=== PATIENT | male | born 1960 | race Caucasian/White ===

== ENCOUNTER → 2019-07-06 10:23 | Outpatient (BNVA) | payer OTHER, SELFPAY | PROVIDERS: Family Provider Family Medicine; Referring Provider Registered Nurse; Visit Provider Orthopaedic Surgery | DX: M25.511 Pain in right shoulder (principal); M13.811 Other specified arthritis, right shoulder | CPT/HCPCS: 73030 ==

== ENCOUNTER 2019-07-17 12:48 | Outpatient (CLI) | payer OTHER, SELFPAY ==
--- NOTE | 2019-07-17 13:20 | MR_ITS ---
WS: [id number] MRI RIGHT SHOULDER NONCONTRAST TECHNIQUE: Sagittal T2, coronal T1, T2 and proton density imaging. Axial gradient PDE imaging. CLINICAL INFORMATION: pain COMPARISON: None. FINDINGS: Moderate degenerative arthritis AC joint with mild edema. Mild downsloping of the acromion. Slight watts bacromial spurring. Supraspinatus appears intact. Normal infraspinatus. Normal teres minor. Subscapul errol tendon appears normal. Normal biceps tendon in the bicipital groove. Mild degenerative fraying of the glenoid labrum. No ac shorty appearing labral tears. Intra-articular biceps tendon appears intact. Normal bone marrow signal i n the humerus. Mild degenerative cystic change involving the greater tuberosity. MR/MR shoulder RT wo con* [id number] IMPRESSION: 1. Moderate degenerative arthritis at the AC joint with mild rotator cuff arth ropathy. Mild edema at the AC joint. Mild subacromial spurring. 2. Rotator cuff appears intact. No full-thickness rotator cuff tears. 3. Normal biceps tendon in the bicipital groove. 4. Chronic appearing degenerative fraying of the glenoid labrum. Labrum appear s grossly intact. 5. No other significant findings.
== END 2019-07-17 12:49 | disposition home or self-care (01) ==
LOC: RADWPI 12:51
PROVIDERS: Family Provider Family Medicine; PCP Family Medicine; Visit Provider Orthopaedic Surgery
DX: M19.011 Primary osteoarthritis, right shoulder (principal); R60.9 Edema, unspecified
CPT/HCPCS: 73221

== ENCOUNTER 2020-04-05 09:34 | Outpatient (CLI) | payer BC, SELFPAY ==
--- NOTE | 2020-04-05 09:51 | XR_ITS ---
WS: [id number] Exam: XR shoulder LT min 2V* [id number] Date/Time of Exam: 04/05/2020 10:01 AM Reason For Exam: PAIN IN LEFT SHOULDER No acute fracture or dislocation. DJD at the AC joint. Small calcification noted along the humeral he ad that might be seen with calcific tendinitis or bursitis. XR/XR shoulder LT min 2V* [id number] IMPRESSION: 1. No fracture or dislocation. 2. Small soft tissue calcification along the humeral head that might indicate c alcific bursitis or tendinitis. 3. AC joint DJD.
--- NOTE | 2020-04-05 09:51 | XR_ITS ---
WS: [id number] Exam: XR chest 2V* [id number] Date/Time of Exam: 04/05/2020 10:01 AM Reason For Exam: TOBACCO USE/SHORTNESS OF BREATH No priors. The lungs are clear and fully expanded. No pleural effusions. Normal cardiomediastinal structures and bony elements. XR/XR chest 2V* [id number] IMPRESSION: 1. No acute cardiopulmonary finding.
== END 2020-04-05 09:35 | disposition home or self-care (01) ==
LOC: RAD 09:35
PROVIDERS: PCP Family Medicine; Visit Provider Nurse Practitioner Family
DX: M25.512 Pain in left shoulder (principal); R06.02 Shortness of breath; Z80.1 Family history of malignant neoplasm of trachea, bronchus and lung; M19.012 Primary osteoarthritis, left shoulder
CPT/HCPCS: 71046; 73030

== ENCOUNTER 2020-11-12 13:11 | Outpatient (CLI) | payer BC, SELFPAY ==
--- NOTE | 2020-11-12 13:22 | XR_ITS ---
WS: [id number] Chest 2 views, 11/12/2020 Clinical Data: PLEURISY/PAIN IN R SHOULDER Comparison: PA and lateral chest, 04/05/2020. Findings: No nodules, masses or effusions are seen. The heart is normal. The pulmonary vascularity is not increased. No pneumonia or pneumothorax is seen. There is an azygos lobe of the lung. XR/XR chest 2V* [id number] Impression: Negative chest.
--- NOTE | 2020-11-12 13:22 | XR_ITS ---
WS: [id number] Right shoulder, 3 views, 11/12/2020 Clinical Data: PAIN BELOW R SHOUDLER BLADE/PLEURISY Comparison: None. Findings: No fractures or dislocations are seen. The AC joint is normal. The adjacent right clavicle, right sca pula and ribs are normal. There is a small calcification adjacent to the greater tuberosity which could indicate calcific bursi tis or tendinitis. XR/XR shoulder RT min 2V* [id number] Impression: Minimal calcific bursitis and/or tendinitis.
== END 2020-11-12 13:12 | disposition home or self-care (01) ==
PROVIDERS: PCP Family Medicine; Visit Provider Family Medicine
DX: M25.511 Pain in right shoulder (principal); R09.1 Pleurisy
CPT/HCPCS: 71046; 73030

== ENCOUNTER 2022-07-09 07:31 | Outpatient (CLI) | payer BC, SELFPAY ==
--- NOTE | 2022-07-09 07:48 | US_ITS ---
WS: [id number] Gallbladder and right upper quadrant ultrasound, 07/09/2022 Clinical Data: ABDOMINAL DISTENSION (GASEOUS) Comparison: None. Findings: The gallbladder shows no sludge or stone. The wall measures 0.3 cm with no pericholecystic fluid. The common bile duct is 0.5 cm and there are no intrahepatic ductal abnormalities. Liver shows no cysts, masses or dilated intrahepatic ducts. The portal vein shows normal flow The pancreas is partly obscured by overlying bowel gas but no cyst, pseudocyst, or evidence of pancre atitis is noted. Right kidney measures 11.3 cm and no cyst, masses or hydronephrosis can be seen. The aorta and inferior vena cava show no vascular abnormalities. US/US abdomen limited [id number] Impression: Negative gallbladder and right upper quadrant ultrasound.
== END 2022-07-09 07:32 | disposition home or self-care (01) ==
PROVIDERS: PCP Family Medicine; Visit Provider Family Medicine
DX: R14.0 Abdominal distension (gaseous) (principal)
CPT/HCPCS: 76705

== ENCOUNTER 2022-09-02 09:37 | Day surgery (SDC) | payer BC, SELFPAY ==
[2022-09-01 11:52] VITALS: BMI 32.8
[2022-09-02 10:03] VITALS: BP 128/84; PULSE 81; RESP 18; TEMP 36.6; O2SAT 95
--- NOTE | 2022-09-02 10:09 | ANES.PREANE2 ---
Pre-Anesthetic Assessment Height/Weight: Height 1.8 m Weight 106.594 kg Temp Pulse Resp BP Pulse Ox O2 Del Method 97.8 F 81 18 128/84 95 Room Air 09/02/22 10:03 09/02/22 10:03 09/02/22 10:03 09/02/22 10:03 09/02/22 10:03 09/02/22 10:03 Preop Diagnosis: Screening / GERD Operation Date: 09/02/22 10:30 Proposed Procedures p : 10423 EGD 30453 Colon K21.9,Z12.11(Not Applicable) - DO alexis Gaitan Colonoscopy(Not Applicable) - Aquilino Mcdowell DO Familial anesthetic complications: none Last intake: Intake Last Liquid Date 09/02/22 Last Liquid Time 22:00 Last Solid Date 09/01/22 Last Solid Time 20:00 Social Tobacco 1/2 ppd pack(s) per day 45+ pack years Exam alert, oriented x 3, clear to auscultation bilaterally and regular rate & rhythm Airway Submandibular: within normal limits Cervical ROM: within normal limits Mallampati: Class II Dentition: loose (right upper molar patient states he could pull it out.) Pulmonary Chronic Obstructive Pulmonary Disease and Shortness of Breath CV/HEM Coronary Artery Disease, Hypertension and Myocardial Infarction (2003, 2018, Stents x4) 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 Performs ADLS still able to work in the yard per patient. None reported Hepatic None reported GI Gastroesophageal Reflux Disease gastric ulcer Metabolic Diabetes Mellitus, Hyperlipidemia and Morbid Obesity [facility] None reported Neuropsych Transient Ischemic Attack (1999) Anesthetic Plan ASA status: 3 Anesthesia: MAC Medications/Allergies Home Medications Medication Instructions Recorded Confirmed Last Taken Type amlodipine 10 mg tablet 10 mg PO QPM 08/12/22 09/01/22 08/31/22 History aspirin 81 mg chewable tablet 1 tab PO DAILY 08/12/22 09/01/22 08/28/22 History glimepiride 2 mg tablet 2 mg PO DAILY 08/12/22 09/01/22 08/31/22 History lovastatin 20 mg tablet 20 mg PO BID 08/12/22 09/01/22 08/31/22 History metformin 850 mg tablet 850 mg PO BID 08/12/22 09/01/22 08/31/22 History metoprolol tartrate 50 mg tablet 50 mg PO DAILY 08/12/22 09/01/22 08/31/22 History pantoprazole 40 mg tablet,delayed 40 mg PO BID 6 weeks #84 tabs 08/12/22 09/01/22 08/31/22 Rx release (Protonix) semaglutide 1 mg/dose (4 mg/3 mL) 1 mg SUBCUT DIRECTED 08/12/22 09/01/22 08/23/22 History subcutaneous pen injector (Ozempic) sitagliptin phosphate 100 mg 100 mg PO DAILY 08/12/22 09/01/22 08/31/22 History tablet (Januvia) Allergies Allergy/AdvReac Type Severity Reaction Status Date / Time lisinopril Allergy cough Verified 09/02/22 09:58 ramipril [From Altace] Allergy cough Verified 09/02/22 09:58 [facility] Anesthesia Medical History Heart disease Type 2 diabetes mellitus Surgical History History of colonoscopy 2016 History of knee surgery History of shoulder surgery Social History Smoking and tobacco status: current every day smoker Alcohol intake: never Substance/Drug Use: never Data Anesthesia Cardiac Studies: No Data to Display
[2022-09-02] MEDS: sodium chloride 0.9% 1,000 ML 30 ML IV (10:19)
--- NOTE | 2022-09-02 10:27 | W.PM.OPSUD ---
Surgery/Procedure H&P Update DATE OF PROCEDURE: September 02, 2022 DATE H&P PERFORMED: 08/12/22 H&P UPDATE INFORMATION: I have reviewed H&P completed within last 30 days, I have examined patient prior to procedure and No changes to prior documentation PREOP DIAGNOSIS: Screening / GERD PLANNED PROCEDURE: Operation Date: 09/02/22 10:30 Proposed Procedures p : 96473 EGD 77470 Colon K21.9,Z12.11(Not Applicable) - DO alexis Gaitan Colonoscopy(Not Applicable) - Aquilino Mcdowell DO
[2022-09-02 10:39] LABS: Glucose Point of Care 187 mg/dL (70-110)
[2022-09-02 10:54] VITALS: BP 147/88; PULSE 94; RESP 16; TEMP 36.4; O2SAT 93
[2022-09-02 11:07] VITALS: BP 141/84; PULSE 91; RESP 17; TEMP 36.4; O2SAT 94
--- NOTE | 2022-09-02 15:52 | ANE.PACU2 ---
Inpatient post-anesthesia follow up: Airway intact: Yes Vital signs: Temperature 97.5 F Pulse Rate 91 Respiratory Rate 17 Blood Pressure 141/84 Pulse Oximetry 94 Oxygen Delivery Me thod Room Air Oxygen Flow Rate 6 Fraction of Inspir ed Oxygen Hydration adequate: Yes Nausea and vomiting: No Pain level: 1 Mental status: Baseline
== END 2022-09-02 12:08 | disposition home or self-care (01) ==
PROVIDERS: PCP Family Medicine; Visit Provider Surgery
PROC: 0DJ08ZZ Inspection of Upper Intestinal Tract, Via Natural or Artificial Opening Endoscopic (ICD-10-PCS; CPT 43235; principal; 2022-09-02 10:30)
PROC: 0DJD8ZZ Inspection of Lower Intestinal Tract, Via Natural or Artificial Opening Endoscopic (ICD-10-PCS; CPT 45378; 2022-09-02 10:30)
DX: Z12.11 Encounter for screening for malignant neoplasm of colon (principal); K21.9 Gastro-esophageal reflux disease without esophagitis; K29.50 Unspecified chronic gastritis without bleeding; B96.81 Helicobacter pylori [H. pylori] as the cause of diseases classified elsewhere; Z86.010 Personal history of colon polyps; K64.8 Other hemorrhoids
CPT/HCPCS: 36416; 43239; 45385; 82962; 88305; 88342; J2704; J7030

== ENCOUNTER 2023-09-19 21:56 | Emergency (ER) | payer OTHER, SELFPAY ==
[2023-09-19 22:14] VITALS: BP 176/91; PULSE 70; RESP 16; TEMP 36.8; O2SAT 97; BMI 33.0
[2023-09-19 22:18] VITALS: BP 194/94; PULSE 75; O2SAT 93
--- NOTE | 2023-09-19 22:18 | ECG_ITS ---
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 Measurements Intervals [place] Rate: 61 P: 61 [place]: 188 QRS: 101 QRSD: 108 T: 65 QT: 410 QTc: 415 Interpretive Statements SINUS RHYTHM POSSIBLE RIGHT VENTRICULAR HYPERTROPHY [SOME/ALL OF: PROMINENT R IN V1, LATE TRANSITION, RAD, CHANCE, SSS] No previous ECG available for comparison Electronically Signed On 09-20-2023 9:45:12 CDT by Silas White M.D. [email or web address]
--- NOTE | 2023-09-19 22:49 | CTR_ITS ---
PROCEDURE INFORMATION: Exam: CT Head Without Contrast Exam date and time: 09/19/2023 11:06 PM Age: 63 years old Clinical indication: Pain; Headache; Patient HX: SORIANO with hypertension over 200 systolic; Additional info: Headache, HTN TECHNIQUE: Imaging protocol: Computed tomography of the head without contrast. Radiation optimization: All CT scans at this facility use at least one of these dose optimization techniques: automated exposure control; mA and/or kV adjustment per patient size (includes targeted exams where dose is matched to clinical indication); or iterative reconstruction. COMPARISON: No relevant prior studies available. RADIATION DOSE METRICS: Total DLP (mGy-cm): 1099.18 FINDINGS: Brain: There is a benign calcified meningioma in the left parasagittal frontal region, measuring 2 cm x 1.5 cm x 2 cm. No acute intracranial hemorrhage. No midline shift. No acute extraaxial fluid collection. Unremarkable white matter. Cerebral ventricles: No ventriculomegaly. Paranasal sinuses: Partially visualized sinuses are unremarkable. No fluid levels. Mastoid air cells: Visualized mastoid air cells are well aerated. Bones: Unremarkable. No acute fracture. Soft tissues: Unremarkable. CT/CT head wo con* [id number] IMPRESSION: 1. No acute intracranial findings. 2. A benign calcified meningioma in the left parasagittal frontal region, measuring 2 cm x 1.5 cm x 2 cm.
[2023-09-19 23:09] LABS: Basophils % 0.5 %; Eosinophils # 0.3 10^3/uL (0.0-0.8); Eosinophils % 3.6 %; Hematocrit 39.5 % (37-53); Lymphocytes # 2.3 10^3/uL (0.8-4.8); Lymphocytes % 26.1 %; Mean Corpuscular HGB Conc 32.4 g/dL (30-55); Mean Corpuscular Hemoglobin 28.3 pg (27-33); Mean Corpuscular Volume 87.2 fl (82-101); Mean Platelet Volume 10.5 fL (7.4-10.4); Monocytes # 0.7 10^3/uL (0.2-0.9); Monocytes % 7.7 %; Neutrophils # 5.32 10^3/uL (1.8-7.7); Neutrophils % 61.6 %; Nucleated Red Blood Cells % 0 %; Platelet Count 203 10^3/cmm (157-399); Red Blood Count 4.53 10^6/uL (3.85-5.65); Red Cell Distribution Width 13.3 % (12.1-15.1); White Blood Count 8.62 10^3/uL (3.29-11.43)
[2023-09-19 23:29] LABS: Alanine Aminotransferase 12 U/L (0-41); Albumin Level 4.1 g/dL (3.5-5.2); Alkaline Phosphatase 77 U/L (40-130); Anion Gap 17.5 (5-19); Aspartate Amino Transferase 13 U/L (0-40); Blood Urea Nitrogen 24 mg/dL (8-23); Calcium 9.1 mg/dL (8.5-10.5); Carbon Dioxide 24 mmol/L (22-29); Chloride 102 mmol/L (98-107); Creatinine Clr Calc Pharmacy 90.2821; Globulin 2.7 g/dL (1.3-4.6); Glomerular Filtration Rate 75.2 mL/min (90-130); Glucose 143 mg/dL (65-115); Osmolality Calculated 295 mOsm/kg (285-295); Potassium 4.5 mmol/L (3.5-5.1); Sodium 139 mmol/L (136-145); Total Bilirubin 0.6 mg/dL (0.15-1.2); Total Protein 6.8 g/dL (6.6-8.7)
[2023-09-19] MEDS: labetalol 5 mg/mL SDV 20mL 20 MG IVP (23:29)
[2023-09-19 23:41] VITALS: BP 150/80; PULSE 78; RESP 20; O2SAT 92
--- NOTE | 2023-09-19 23:52 | W.ED.HA ---
HPI - Headache General: Chief Complaint: Headache Stated Complaint: High BP Time Seen by Provider: 09/19/23 22:48 History of Present Illness: 63-year-old male gentleman with a history of hypertension and fairly extensive history of coronary artery disease. He presents with 3 weeks of headache. He noticed that on Wednesday, his blood pressure was significantly high, and has seemed to remain high all weekend. His headache worsened with his blood pressure being high. He denies any chest discomfort or shortness of breath. He denies significant dizziness or vision changes. No significant weakness. No fever. PFS ED PFSH: Medical History (Updated 09/20/23 @ 00:19 by Charles Simental DO) Heart disease Type 2 diabetes mellitus Surgical History History of shoulder surgery History of knee surgery History of colonoscopy 2017 Social History Smoking and tobacco/nicotine status: current every day tobacco/nicotine user Alcohol intake: never Substance/Drug Use: never Physical Exam Const: COMMON NORMALS: no acute distress, patient oriented x3 and alert GENERAL APPEARANCE: cooperative; not ill appearing and not frail appearing HENMT: COMMON NORMALS: normocephalic, atraumatic and Normal external nose present HEAD & SCALP: normocephalic and atraumatic FACE & SINUS: normal facial exam and face symmetric NOSE: Normal external nose present Eye: COMMON NORMALS: Equal, round and reactive pupils present and EOMs intact bilaterally PUPIL: Yes Equal, round and reactive pupils present Neck/C-Spine: GENERAL: Yes trachea midline Chest: CHEST: Yes Symmetrical chest wall rise Resp: COMMON NORMALS: normal respiratory effort, No retractions, No use of accessory muscles and clear to auscultation bilaterally AUSCULTATION: clear to auscultation bilaterally Cardio: COMMON NORMALS: regular rate and regular rhythm RATE: regular rate RHYTHM: regular rhythm GI: COMMON NORMALS: Normal to inspection, nondistended, normoactive bowel sounds present Extremity: COMMON NORMALS: no pedal edema Neuro: CAMMY COMA SCALE: document GCS findings [place] coma scale eye opening: Spontaneous Cammy coma scale verbal response: Orientated Cammy coma scale motor response: Obey commands [place] coma scale total score: 15 COMMON NORMALS: patient oriented x3 SENSORIUM/ORIENTATION: Yes alert CRANIAL NERVES: Yes CN normal except as noted COORDINATION/BALANCE: [id number] test normal and [id number]-nj-[id number] test normal SPEECH: speech normal GAIT: Yes Normal gait present SENSORY EXAM: Yes extremities (intact) MOTOR EXAM: Normal motor muscle tone present throughout COORDINATION: [id number]-lm-[id number] test normal and vwyv-[id number] test normal Psych: COMMON NORMALS: speech normal SPEECH: Yes normal speech Skin: COMMON NORMALS: no rashes or lesions noted GENERAL SKIN EXAM: no rashes or lesions noted Course Vital Signs: Vital signs: Vital Signs Temperature 98.3 F 09/19/23 22:14 Pulse Rate 78 09/19/23 23:41 Respiratory Rate 20 H 09/19/23 23:41 Blood Pressure 150/80 09/19/23 23:41 Pulse Oximetry 92 09/19/23 23:41 Oxygen Delivery Me thod Room Air 09/19/23 22:14 MDM - Headache Medical Decision Making CT reveals chronic finding of a benign calcified meningioma. Otherwise negative. CBC is normal. BMP is not remarkable. His EKG shows a sinus rhythm with a rate of 60, normal axis, intervals are normal. No acute ST wave changes. Blood pressure is down to 154/80 after labetalol. Headache is beginning to improve as well. Blood pressure is creeping back up his labetalol wearing off, so 10 more milligrams IV given, along with oral losartan. He will be placed on losartan for better control of his pressure. He will check his pressure twice daily. Outpatient follow-up. Return for worsening. Lab Data 09/19/23 23:04 09/19/23 23:[address] 09/19/23 22:49 IMPRESSION: 1. No acute intracranial findings. 2. A benign calcified meningioma in the left parasagittal frontal region, measuring 2 cm x 1.5 cm x 2 cm. Laboratory Results WBC 8.62 10^3/uL (3.29-11.43) 09/19/23 23:04 RBC 4.53 10^6/uL (3.85-5.65) 09/19/23 23:04 Hgb 12.80 g/dL (11.27-16.99) 09/19/23 23:04 Hct 39.5 % (37-53) 09/19/23 23:04 MCV 87.2 fl (82-101) 09/19/23 23:04 MCH 28.3 pg (27-33) 09/19/23 23:04 MCHC 32.4 g/dL (30-55) 09/19/23 23:04 RDW 13.3 % (12.1-15.1) 09/19/23 23:04 Plt Count 203 10^3/cmm (157-399) 09/19/23 23:04 MPV 10.5 fL (7.4-10.4) H 09/19/23 23:04 Neut % (Auto) 61.6 % 09/19/23 23:04 Lymph % (Auto) 26.1 % 09/19/23 23:04 [place] % (Auto) 7.7 % 09/19/23 23:04 Eos % (Auto) 3.6 % 09/19/23 23:04 Baso % (Auto) 0.5 % 09/19/23 23:04 Neut # (Auto) 5.32 10^3/uL (1.8-7.7) 09/19/23 23:04 Lymph # (Auto) 2.3 10^3/uL (0.8-4.8) 09/19/23 23:04 [place] # (Auto) 0.7 10^3/uL (0.2-0.9) 09/19/23 23:04 Eos # (Auto) 0.3 10^3/uL (0.0-0.8) 09/19/23 23:04 Baso # (Auto) 0.0 10^3/uL (0.0-0.1) 09/19/23 23:04 Nucleated RBC % (auto) 0 % 09/19/23 23:04 Nucleated RBCs # 0.0 /100WBC 09/19/23 23:04 Sodium 139 mmol/L (136-145) 09/19/23 23:04 Potassium 4.5 mmol/L (3.5-5.1) 09/19/23 23:04 Chloride 102 mmol/L (98-107) 09/19/23 23:04 Carbon Dioxide 24 mmol/L (22-29) 09/19/23 23:04 Anion Gap 17.5 (5-19) 09/19/23 23:04 BUN 24 mg/dL (8-23) H 09/19/23 23:04 Creatinine 1.0 mg/dL (0.7-1.2) 09/19/23 23:04 GFR Calculation 75.2 mL/min (90-130) L 09/19/23 23:04 Glucose 143 mg/dL (65-115) H 09/19/23 23:04 Calculated Osmolality 295 mOsm/kg (285-295) 09/19/23 23:04 Calcium 9.1 mg/dL (8.5-10.5) 09/19/23 23:04 Total Bilirubin 0.6 mg/dL (0.15-1.2) 09/19/23 23:04 AST 13 U/L (0-40) 09/19/23 23:04 ALT 12 U/L (0-41) 09/19/23 23:04 Alkaline Phosphatase 77 U/L (40-130) 09/19/23 23:04 Total Protein 6.8 g/dL (6.6-8.7) 09/19/23 23:04 Albumin 4.1 g/dL (3.5-5.2) 09/19/23 23:04 Globulin 2.7 g/dL (1.3-4.6) 09/19/23 23:04 All radiology interpretation(s) finalized by discharge Discharge Plan Discharge Patient Disposition: Home Clinical Impression: Headache, Hypertension Condition: Stable Prescriptions: New losartan 50 mg tablet 50 mg PO DAILY Qty: 30 0RF No Action metoprolol tartrate 50 mg tablet 50 mg PO DAILY glimepiride 2 mg tablet 2 mg PO DAILY aspirin 81 mg tablet,chewable 1 tab PO DAILY Ozempic 1 mg/dose (4 mg/3 mL) pen injector 1 mg SUBCUT DIRECTED Rx Instructions: wednesday morning Januvia 100 mg tablet 100 mg PO DAILY metformin 850 mg tablet 850 mg PO BID lovastatin 20 mg tablet 20 mg PO BID amlodipine 10 mg tablet 10 mg PO QPM clotrimazole-betamethasone 1-0.05 % cream 1 applic topical BID 28 Days Qty: 45 2RF Protonix 40 mg tablet,delayed release (DR/EC) 40 mg PO QAM 30 Days Qty: 30 11RF Discharge Orders: Discharge ED (Routine); Ordered 09/20/23 Ordered By: Charles Simental Referrals: [place],Maribel A, MD [Primary Care Provider] - 4-7 days Patient Instructions: Acute Headache (ED), Hypertension (ED), Opioid Safety, Pain Management Activity Restrictions/Additional Instructions: New medication as directed for your blood pressure. Keep a blood pressure log twice daily, and report numbers to your doctor. Return for mental status changes, chest discomfort, worsening headache, vomiting, any other concerning symptoms. See your doctor this week. Coding Level of Care Code ED Pulp Beater for Mark Potter
[2023-09-20] MEDS: labetalol 5 mg/mL SDV 20mL 10 MG IVP (00:39)
[2023-09-20] MEDS: metoclopramide 5 mg/mL SDV 2 mL 10 MG IVP (00:42)
[2023-09-20] MEDS: ketorolac 30 mg/mL INJ 15 MG IVP (00:43)
[2023-09-20 00:46] VITALS: BP 164/98; PULSE 74; O2SAT 92
[2023-09-20 00:52] VITALS: BP 164/98; PULSE 78; RESP 18; O2SAT 93
[2023-09-20 01:13] VITALS: BP 189/113; PULSE 71; O2SAT 95
== END 2023-09-20 01:16 | disposition home or self-care (01) ==
PROVIDERS: Emergency Provider Emergency Medicine; PCP Family Medicine
DX: R51.9 Headache, unspecified (principal); I10 Essential (primary) hypertension; I25.10 Atherosclerotic heart disease of native coronary artery without angina pectoris; E11.9 Type 2 diabetes mellitus without complications; Z79.85 Long-term (current) use of injectable non-insulin antidiabetic drugs; Z79.82 Long term (current) use of aspirin; Z79.84 Long term (current) use of oral hypoglycemic drugs; Z72.0 Tobacco use
CPT/HCPCS: 70450; 80053; 85025; 93005; 96374; 96375; 96376; 99285; J1885; J2765; J3490

== ENCOUNTER 2023-10-04 13:14 | Outpatient (CLI) | payer OTHER, SELFPAY ==
--- NOTE | 2023-10-04 13:19 | XRR_ITS ---
PROCEDURE INFORMATION: Exam: XR Cervical Spine Exam date and time: 10/04/2023 1:34 PM Age: 63 years old Clinical indication: Pain; Cervicalgia; Patient HX: Right sided headache for 5 weeks TECHNIQUE: Imaging protocol: Radiologic exam of the cervical spine. Views: 6 or more views. COMPARISON: CT head wo con* [id number] 09/19/2023 11:06 PM FINDINGS: Bones/joints: Moderate multilevel uncovertebral hypertrophy and facet arthrosis. No evidence of fracture or subluxation. Soft tissues: Prevertebral soft tissues and airway are grossly unremarkable. XR/XR cervical spine min 6V [id number] IMPRESSION: 1. Multilevel degenerative changes without evidence of fracture or subluxation of the cervical spine. Consider correlation with follow-up nonemergent MRI if there is concern for neural impingement.
== END 2023-10-04 13:15 | disposition home or self-care (01) ==
LOC: RAD 13:18
PROVIDERS: PCP Internal Medicine; Visit Provider Internal Medicine
DX: M47.892 Other spondylosis, cervical region (principal); M53.82 Other specified dorsopathies, cervical region
CPT/HCPCS: 72052

== ENCOUNTER 2023-10-18 08:46 | Outpatient (CLI) | payer OTHER, SELFPAY ==
--- NOTE | 2023-10-18 08:49 | CT_ITS ---
WS: [id number] LDCT LUNG CANCER SCREENING TECHNIQUE: Noncontrast CT of the chest with coronal and sagittal reformatted images. CLINICAL INFORMATION: NICOTINE DEPENDENCE,CIGARETTES COMPARISON: None. DLP: 100.60 mGy.cm DIvol: Mean CTDIvol: 2.40 (mGy) All CT scans at [facility] use at least one of these dose optimization techniques: automat ed exposure control; mA and/or kV adjustment per patient size (includes targeted exams where dose is matched to clinical indication); or iterative reconstruction. FINDINGS: Incidental azygous fissure in the RIGHT upper lobe. Mild chronic emphysematous changes. Cystic bronch iectasis in the LEFT upper lobe. A few hazy interstitial opacities in the LEFT upper lobe likely infl ammatory. Subsegmental atelectasis in the lingula. Normal caliber thoracic aorta aortic calcification. Coronary calcification. No mediastinal or hilar l ymphadenopathy. No axillary lymphadenopathy. CT/CT lung screening [id number] IMPRESSION: LUNG-RADS: 1-Negative FOLLOW UP: 12 Month: Continue annual screening with LDCT
== END 2023-10-18 08:47 | disposition home or self-care (01) ==
LOC: RAD 08:46
PROVIDERS: PCP Internal Medicine; Visit Provider Internal Medicine
DX: F17.210 Nicotine dependence, cigarettes, uncomplicated (principal); Q33.1 Accessory lobe of lung; J43.9 Emphysema, unspecified; J47.9 Bronchiectasis, uncomplicated
CPT/HCPCS: 71271

== ENCOUNTER 2024-09-12 11:02 | Outpatient (CLI) | payer MEDICARE, OTHER, SELFPAY ==
--- NOTE | 2024-09-12 11:07 | US_ITS ---
WS: [id number] Exam: US scrotum [id number] Date/Time of Exam: 09/12/2024 11:09 AM Reason For Exam: LEFT TESTICULAR PAIN Both testicles demonstrate normal echotexture. No sign of testicular mass or nodule. Enlarged hyperemic LEFT epididymis noted suggesting epididymitis. The RIGHT epididymis was unremarkable. No hydrocele or varicocele. Both testicles demonstrate normal vascularity with color flow Doppler. No scrotal wall abnormalities. The RIGHT testicle measures 4.3 x 2.4 x 3.2 cm. The LEFT testicle measures 4.3 x 2.6 x 3 cm. US/US scrotum [id number] IMPRESSION: 1. Enlarged hyperemic LEFT epididymis suggesting epididymitis. 2. No sign of testicular mass, torsion or other significant finding.
== END 2024-09-12 11:03 | disposition home or self-care (01) ==
PROVIDERS: PCP Internal Medicine; Visit Provider Nurse Practitioner Family
DX: N50.812 Left testicular pain (principal)
CPT/HCPCS: 76870

== ENCOUNTER 2024-10-19 11:50 | Outpatient (CLI) | payer MEDICARE, OTHER, SELFPAY ==
--- NOTE | 2024-10-19 11:56 | CT_ITS ---
WS: [id number] LDCT LUNG CANCER SCREENING HISTORY: NICOTINE DEPENDENCE,CIGARETTES TECHNIQUE: Axial imaging performed from the apices to 1 cm below the costophrenic angles. Coronal and sagittal reformats are submitted with axial MIP series. All CT scans at [facility] use at least one of these dose optimization techniques: automated exposure control; mA and/or kV adjustment per patient size (includes targeted exams where dose is matched to clinical indication); or iterative reconstruction. DLP: 112.99 mGy.cm DIvol: Mean CTDIvol: 2.50 (mGy) COMPARISON: 10/18/2023 Diagnostic quality: Satisfactory Lungs: Mildly hyperinflated lungs. Azygos fissure and RIGHT upper lobe. There is a interstitial thickening and groundglass attenuation. LEFT upper lobe bronchiectasis. Early changes of bronchiectasis also in the RIGHT upper lobe. No pulmonary mass or nodule. Heart: Normal size heart with no pericardial effusion.. Moderate coronary artery calcifications. Other findings: Mild atherosclerosis aorta. Normal size pulmonary artery. No adenopathy. Small hiatal hernia. No adrenal mass. CT/CT lung screening [id number] IMPRESSION: LUNG-RADS: 1-Negative FOLLOW UP: 12 Month: Continue annual screening with LDCT OTHER FINDINGS (S MODIFIER): None.
== END 2024-10-19 11:51 | disposition home or self-care (01) ==
LOC: RAD 11:51
PROVIDERS: PCP Internal Medicine; Visit Provider Internal Medicine
DX: Z12.2 Encounter for screening for malignant neoplasm of respiratory organs (principal); F17.210 Nicotine dependence, cigarettes, uncomplicated; J47.9 Bronchiectasis, uncomplicated; Q33.1 Accessory lobe of lung; K44.9 Diaphragmatic hernia without obstruction or gangrene; I25.10 Atherosclerotic heart disease of native coronary artery without angina pectoris
CPT/HCPCS: 71271